=== PATIENT | female | born 1985 | race African-American/Black ===

== ENCOUNTER 2018-10-22 17:25 | Emergency (ER) | payer OTHER ==
[~2018-10-22] VITALS: Ht 167.6 cm; Wt 59.9 kg
[2018-10-22 17:56] VITALS: BP 96/54
[2018-10-22] MEDS ORDERED: IBUPROFEN 600 MG TABLET PO ONE ×2 (17:57→18:00)
--- NOTE | 2018-10-22 18:02 | NUR ---
REFUSED MOTRIN,DEGRASSE BACK FEEDER PLYWOOD LAYUP LINE AWARE
== END 2018-10-22 17:59 ==
LOC: ER 17:26
DX: R51 Headache (principal); R06.02 Shortness of breath